=== PATIENT | female | born 1975 | race Two or more races ===

== ENCOUNTER 2021-03-05 15:21 | Outpatient (CLI) | payer OTHER | END 2021-03-05 15:26 | disposition home or self-care (01) | LOC: EKG 15:21 | PROVIDERS: ATTEND Obstetrics & Gynecology | DX: Z01.810 Encounter for preprocedural cardiovascular examination (principal) ==

== ENCOUNTER 2021-03-12 12:15 | Inpatient (IN) | payer OTHER ==
[~2021-03-12] VITALS: Ht 162.6 cm; Wt 51.7 kg
== END 2021-03-23 10:39 | disposition home or self-care (01) | DRG 743 ==
LOC: EDSTATUS 12:15 → ADM 12:15 → O/R 03-20 07:02 → OB/GYN 03-20 12:15 → SURG-SUITE 03-20 14:19 → OB/GYN 03-20 15:30 → SURG-SUITE 03-23 10:39
PROVIDERS: Urology; ADMIT Obstetrics & Gynecology; ATTEND Obstetrics & Gynecology
PROC: 0UQF3ZZ Repair Cul-de-sac, Percutaneous Approach (ICD-10-PCS; 2021-03-20)
PROC: 0TSD0ZZ Reposition Urethra, Open Approach (ICD-10-PCS; 2021-03-20)
PROC: 0JQC3ZZ Repair Pelvic Region Subcutaneous Tissue and Fascia, Percutaneous Approach (ICD-10-PCS; 2021-03-20)
PROC: 0TJB8ZZ Inspection of Bladder, Via Natural or Artificial Opening Endoscopic (ICD-10-PCS; 2021-03-20)
PROC: 0UT97ZZ Resection of Uterus, Via Natural or Artificial Opening (ICD-10-PCS; principal; 2021-03-20 15:30)
PROC: 0USG7ZZ Reposition Vagina, Via Natural or Artificial Opening (ICD-10-PCS; 2021-03-20 15:30)
DX: N81.89 Other female genital prolapse (principal); N39.3 Stress incontinence (female) (male); N81.10 Cystocele, unspecified; N81.5 Vaginal enterocele; N81.6 Rectocele; N72 Inflammatory disease of cervix uteri; D25.2 Subserosal leiomyoma of uterus; I10 Essential (primary) hypertension